=== PATIENT | male | born 1985 | race Two or more races ===

== ENCOUNTER 2017-08-23 18:38 | Emergency (ER) | payer OTHER ==
[~2017-08-23] VITALS: Ht 177.8 cm; Wt 102.1 kg
[~2017-08-23 18:38] MED LIST: ULTRAM50 MG PO
== END 2017-08-23 22:01 | disposition home or self-care (01) ==
LOC: ER 18:38
DX: S63.064A Dislocation of metacarpal (bone), proximal end of right hand, initial encounter (principal); W22.8XXA Striking against or struck by other objects, initial encounter; Y93.89 Activity, other specified; Y92.098 Other place in other non-institutional residence as the place of occurrence of the external cause; Y99.8 Other external cause status